=== PATIENT | male | born 1960 | race African-American/Black ===

== ENCOUNTER 2016-05-13 17:40 | Emergency (ER) | payer OTHER ==
[~2016-05-13] VITALS: Wt 89.0 kg
[~2016-05-13 17:40] MED LIST: ALPR0.5T6 PO; ESTR1.2510 PO; FLUO20CA22 PO; GABA-526 PO; HYDR4TAB18 PO; OXYC30TA3 PO; TOPI100T42 PO; TRAZ100T15 PO
[2016-05-13] MEDS ORDERED: ACETAMINOPHEN 325 MG TAB PO ONE (18:30)
--- NOTE | 2016-05-13 18:56 | RADRPT ---
PROCEDURE: Abdominal ultrasound CLINICAL INDICATION: Abdominal pain TECHNIQUE: Axial and longitudinal garcia scale images of the four abdominal quadrants COMPARISON: None FINDINGS: Four quadrant abdominal ultrasound demonstrates no evidence of free intraperitoneal fluid IMPRESSION: No free intraperitoneal fluid RPTAT: HH .Brian Meade MD, Date Time Electronically viewed and signed by .Brian Meade MD, on 05/13/2016 18:56 .W/
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
[2016-05-13] MEDS ORDERED: ACET1TAB40 PO (19:54)
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
[2016-05-13 20:06] LABS: URINE BLOOD (Dip) POC Negative (NEGATIVE)
[2016-05-13] MEDS ORDERED: LORAZEPAM 0.5 MG TAB PO ONE (20:30)
[2016-05-13 21:34] VITALS: BP 121/73; PULSE 73; RESP 17; TEMP 97.9
== END 2016-05-13 21:34 | disposition home or self-care (01) ==
LOC: FTE 17:40
DX: S09.90XA Unspecified injury of head, initial encounter (principal); S29.001A Unspecified injury of muscle and tendon of front wall of thorax, initial encounter; S39.91XA Unspecified injury of abdomen, initial encounter; R51 Headache; R07.89 Other chest pain; Y08.89XA Assault by other specified means, initial encounter
CPT/HCPCS: 70450; 71010; 76705; 81003; Z7610

== ENCOUNTER 2016-10-30 16:26 | Emergency (ER) | payer OTHER ==
[~2016-10-30] VITALS: Ht 188 cm; Wt 84.0 kg
[~2016-10-30 16:26] MED LIST changes: +ACET1TAB40 PO; -HYDR4TAB18 PO; +HYDR4TAB51 PO
[2016-10-30 16:31] VITALS: Ht 188 cm; Wt 84.0 kg
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
== END 2016-10-30 18:34 | disposition left against medical advice (07) ==
LOC: FTE 16:26
DX: S09.90XA Unspecified injury of head, initial encounter (principal); V13.4XXA Pedal cycle driver injured in collision with car, pick-up truck or van in traffic accident, initial encounter
CPT/HCPCS: 99283

== ENCOUNTER 2017-09-08 21:34 | Emergency (ER) | END 2017-09-09 02:59 | disposition home or self-care (01) ==

== ENCOUNTER 2017-10-26 17:43 | Emergency (ER) | END 2017-10-26 20:21 | disposition left against medical advice (07) ==

== ENCOUNTER 2018-09-28 08:29 | Emergency (ER) | payer OTHER ==
[~2018-09-28] VITALS: Ht 182.9 cm; Wt 86.0 kg
[~2018-09-28 08:29] MED LIST changes: -ACET1TAB40 PO; +DICY10CA40 PO; -ESTR1.2510 PO; +ONDA4TAB14 PO; +PREM125 PO; +TOPI100T PO; -TOPI100T42 PO; +TRA100 PO; -TRAZ100T15 PO
[2018-09-28 08:37] VITALS: Ht 182.9 cm; Wt 86.0 kg
[2018-09-28] MEDS ORDERED: LIDOCAINE/MYLANTA 40 ML BTL PO STA (10:32)
[2018-09-28] MEDS ORDERED: SOD CHLORIDE 0.9% 1,000 ML IV STA (10:32)
[2018-09-28] MEDS ORDERED: ONDANSETRON 4 MG INJ IV STA (10:32)
[2018-09-28] MEDS ORDERED: KETOROLAC 15 MG INJ IV STA (10:32)
[2018-09-28] MEDS ORDERED: BELLADONNA/PHENOBARBITAL TAB PO STA (10:32)
[2018-09-28] MEDS ORDERED: PREM125 PO (11:08)
[2018-09-28] MEDS ORDERED: ATAZ1TAB PO (11:09)
[2018-09-28] MEDS ORDERED: HYDR4TAB PO (11:11)
[2018-09-28] MEDS ORDERED: OXYC30TA PO (11:11)
[2018-09-28] MEDS ORDERED: GABA-526 PO (11:12)
[2018-09-28] MEDS ORDERED: ABAC1TAB14 PO (11:13)
--- NOTE | 2018-09-28 11:21 | ERD ---
ER Documentation Chief Complaint Chief Complaint C/O N/V, DIARRHEA, UNABLE TO EAT FOR 3 DAYS HPI 58-year-old transgender woman with a history of HIV complains of nausea and diarrhea for the last 3 days, she denies fevers or chills, no blood per rectum or melena, no complaints of chest pain or shortness of breath. Patient feels de hydrated. She states her last recent viral load was undetectable. Patient denies recent travel or antibiotic use. ROS All systems reviewed and are negative except as per history of present illness. Medications Home Meds Active Scripts Ondansetron Hcl* (Zofran*) 4 Mg Tablet, 4 MG PO Q8H PRN for NAUSEA AND/OR VOMITING, #30 TAB Prov:DUTCH CAN MD 09/28/18 Ibuprofen* (Motrin*) 600 Mg Tab, 600 MG PO Q8 PRN for PAIN AND/OR INFLAMMATION, #30 TAB Prov:DUTCH CAN MD 09/28/18 Reported Medications Abacavir Sulfate/Lamivudine (Abacavir-Lamivudine 600-300 mg) 1 Each Tablet, 1 EACH PO DAILY, TAB 09/28/18 Gabapentin* (Gabapentin*) 600 Mg Tablet, 600 MG PO TID, #90 TAB 09/28/18 Hydromorphone Hcl* (Hydromorphone Hcl*) 4 Mg Tablet, 4 MG PO Q8H PRN for PAIN, TAB 09/28/18 Oxycodone Hcl* (IR) (Oxycodone Hcl*) 30 Mg Tablet, 30 MG PO Q4H PRN for PAIN, TAB 09/28/18 Atazanavir Sulfate/Cobicistat (Evotaz 300 mg-150 mg Tablet) 1 Each Tablet, 1 EACH PO DAILY, TAB 09/28/18 Estrogens Conjugated* (Premarin*) 1.25 Mg Tablet, 1.25 MG PO BID, TAB 09/28/18 Discontinued Reported Medications Hydromorphone Hcl* (Dilaudid*) 4 Mg Tablet, 4 MG PO Q4H PRN for PAIN, TAB 09/04/15 Oxycodone Hcl* (IR) (Roxicodone*) 30 Mg Tablet, 30 MG PO Q4H PRN for PAIN, TAB 09/04/15 Fluoxetine Hcl* (Fluoxetine Hcl*) 20 Mg Capsule, 20 MG PO DAILY, CAP 09/04/15 Gabapentin* (Gabapentin*) 600 Mg Tablet, 600 MG PO TID, #90 TAB 09/04/15 Alprazolam* (Alprazolam*) 0.5 Mg Tablet, 0.5 MG PO TID, TAB 09/04/15 Trazodone Hcl* (Trazodone Hcl*) 100 Mg Tablet, 100 MG PO QHS, #30 TAB 09/04/15 Topiramate* (Topamax*) 100 Mg Tablet, 100 MG PO BID 09/09/12 Estrogens Conjugated* (Premarin*) 1.25 Mg Tablet, 1.25 MG PO BID, #60 07/09/11 Discontinued Scripts Ondansetron (Ondansetron Odt) 4 Mg Tab.rapdis, 4 MG PO Q6H PRN for NAUSEA AND/OR VOMITING, #10 TAB Prov:MARCO CARDONA MD 09/09/17 Dicyclomine HCl (Dicyclomine HCl) 10 Mg Capsule, 1 CAP PO TID PRN for abdominal cramping, #20 Prov:MARCO CARDONA MD 09/09/17 Allergies Allergies: Coded Allergies: No Known Allergy (Unverified , 09/28/18) PMhx/Soc HIV History of Surgery: No Anesthesia Reaction: No Hx Neurological Disorder: No Hx Respiratory Disorders: No Hx Cardiac Disorders: No Hx Psychiatric Problems: No Hx Alcohol Use: No Hx Substance Use: No Hx Tobacco Use: No Smoking Status: Never smoker FmHx Family History: No diabetes Physical Exam Vitals Vital Signs Date Temp Pulse Resp B/P (MAP) Pulse Ox O2 O2 Flow FiO2 Time Delivery Rate 09/28/18 84 18 128/86 100 Room Air 11:17 (100) 09/28/18 97.3 85 18 109/74 100 08:37 (86) Physical Exam GENERAL: Well-developed, well-nourished, appears dehydrated, in no apparent distress, looks nontoxic in appearance HEENT: Dry mucous membranes, pink conjunctiva, no cervical spine tenderness or step-off deformities, no goiter, no jaundice or icterus, extraocular movements intact without pain. No submandibular induration, and no pharyngeal erythema NEURO: Alert and oriented 3, cranial nerves II through XII intact bilaterally, pupils equal round reactive to light, no focal deficits or facial asymmetry, sensation intact distally Strength 5/5 in upper and lower extremities bilaterally CARDIAC: Regular rate and rhythm, no murmurs rubs or gallops LUNGS: Clear bilaterally no wheezing crackles or stridor ABDOMEN: Soft nontender, no guarding, no rigidity, no rebound, no psoas sign no obturator sign. Normoactive bowel sounds SKIN: Warm and dry to touch, no abrasions, contusions, or hematomas, no lacerations, no ecchymosis, no target lesions, and without ulcers EXTREMITIES: No clubbing cyanosis or edema, calves are bilaterally symmetrical, no Homans sign, no popliteal cord sign. Distal pulses equal and bilateral PSYCH: Normal affect without agitation or irritability Result Diagram: 09/28/18 1056 09/28/18 1056 Results 24 hrs Laboratory Tests Test 09/28/18 10:56 White Blood Count 2.5 10^3/ul Red Blood Count 5.08 10^6/ul Hemoglobin 15.2 g/dl Hematocrit 46.6 % Mean Corpuscular Volume 91.7 fl Mean Corpuscular Hemoglobin 29.9 pg Mean Corpuscular Hemoglobin Concent 32.6 g/dl Red Cell Distribution Width 12.6 % Platelet Count 178 10^3/UL Mean Platelet Volume 10.4 fl Immature Granulocytes % 0.400 % Neutrophils % 52.0 % Lymphocytes % 29.8 % Monocytes % 9.1 % Eosinophils % 7.9 % Basophils % 0.8 % Nucleated Red Blood Cells % 0.0 /100WBC Immature Granulocytes # 0.010 10^3/ul Neutrophils # 1.3 10^3/ul Lymphocytes # 0.8 10^3/ul Monocytes # 0.2 10^3/ul Eosinophils # 0.2 10^3/ul Basophils # 0.0 10^3/ul Nucleated Red Blood Cells # 0.0 10^3/ul Sodium Level 143 mmol/L Potassium Level 3.9 mmol/L Chloride Level 107 mmol/L Carbon Dioxide Level 27 mmol/L Anion Gap 9 Blood Urea Nitrogen 11 mg/dl Creatinine 0.94 mg/dl Est Glomerular Filtrat Rate mL/min > 60 mL/min Glucose Level 85 mg/dl Calcium Level 9.3 mg/dl Total Bilirubin 0.6 mg/dl Direct Bilirubin 0.00 mg/dl Indirect Bilirubin 0.6 mg/dl Aspartate Amino Transf (AST/SGOT) 46 IU/L Alanine Aminotransferase (ALT/SGPT) 29 IU/L Alkaline Phosphatase 101 IU/L Total Protein 7.4 g/dl Albumin 4.0 g/dl Globulin 3.40 g/dl Albumin/Globulin Ratio 1.17 Lipase 55 U/L Current Medications Medications Dose Sig/Wally Start Time Status Last (Trade) Ordered Route PRN Stop Time Admin Dose Reason Admin Sodium 1,000 ml @ Q1H STAT 09/28/18 DC 09/28/18 Chloride 1,000 mls/hr IV 10:32 11:05 09/28/18 11:31 Ondansetron 4 mg ONCE STAT 09/28/18 DC 09/28/18 HCl (Zofran IV 10:32 11:05 Inj) 09/28/18 10:34 40 ml ONCE STAT 09/28/18 DC 09/28/18 Miscellaneous PO 10:32 11:03 Medication 09/28/18 10:34 (Gi Cocktail (2)) Belladonna/ 2 tab ONCE STAT 09/28/18 DC 09/28/18 Phenobarbital PO 10:32 11:05 () 09/28/18 10:34 Ketorolac 15 mg ONCE STAT 09/28/18 DC 09/28/18 Tromethamine IV 10:32 11:05 (Toradol) 09/28/18 10:34 Procedures/MDM IV line was established patient was placed on traffic monitor specialist rhythm strip revealed a sinus rhythm at about 80 bpm with upright P and T waves. Patient was afebrile I administered 1 L normal saline IV, GI cocktail p.o., Toradol 15 mg IV, Zofran 4 mg IV CBC revealed a mild leukopenia, electrolytes and liver function tests are unremarkable Differential diagnoses considered, included but not limited to acute coronary syndrome, pulmonary embolism, aortic dissection, abdominal aortic aneurysm, sepsis, stroke, meningitis, encephalitis, pneumonia, appendicitis, chol ecystitis, bowel obstruction, pyelonephritis, nephrolithiasis, cystitis, as well as metabolic, hematologic, and electrolyte abnormalities. As well as abscess, cellulitis, fractures, and dislocations. Patient feels much better at this time, and vital signs are normal, symptoms have improved. I did give strict instructions to return to the ED if symptoms continue or worsen, patient will otherwise follow-up with primary care physician. Patient understood instructions and agreed to plan. Disclaimer: Inadvertent spelling and grammatical errors are likely due to EHR/dictation software use and do not reflect on the overall quality of patient care. Also, please note that the electronic time recorded on this note does not necessarily reflect the actual time of the patient encounter. Departure Diagnosis: Primary Impression: Diarrhea Diarrhea type: unspecified type Qualified Codes: R19.7 - Diarrhea, unspecified Additional Impression: Acute dehydration Condition: Good DUTCH CAN MD Sep 28, 2018 11:21
[2018-09-28] MEDS ORDERED: IBUP-1542 PO (12:10)
[2018-09-28] MEDS ORDERED: ONDA4TAB8 PO (12:10)
[2018-09-28 13:01] VITALS: BP 118/65; PULSE 76; RESP 19
== END 2018-09-28 13:02 | disposition home or self-care (01) ==
LOC: E/R 08:29
DX: E86.0 Dehydration (principal); R11.0 Nausea; Z21 Asymptomatic human immunodeficiency virus [HIV] infection status
CPT/HCPCS: 36415; 80053; 83690; 85025; 96374; 96375; J1885; J2405; J7030; Z7502; Z7610